=== PATIENT | female | born 1995 | race Caucasian/White ===

== ENCOUNTER 2017-04-06 15:54 | Emergency (ER) | payer OTHER, MEDICAID ==
[~2017-04-06] VITALS: Ht 167.6 cm; Wt 54.4 kg
[~2017-04-06 15:54] MED LIST: AMOXICILLIN 50500 MG PO; BACTRIM DS TAB1 EACH PO; BACTROBAN15 GM TP; BENADRYL ALLERG25 MG PO; BENZONATATE; CELEXA; CELEXA 10 MG TA10 M1; CELEXA20 MG PO; ERYTHROMYCIN E3.5 G1 OPHTHALMIC; ERYTHROMYCIN E3.5 G3 OPHTHALMIC; FLEXERIL PO; GENTAK 3 MG/M3 MG/M1 OPHTHALMIC; KEFLEX500 MG PO; MACROBID 100 M100 M1 PO; MACRODANTIN100 MG; MAGNESIUM; MIDOL CAPLET1 EAC1 PO; NOHOMEMEDICATIONS; NORCO 5-325 TA1 EACH PO; PRENATAL FORMU1 EAC4; PROPRANOLOL; TIZANIDINE HCL4 MG PO; TOBRADEX EYE DRO5 ML OP; TOBRAMYCIN SULFA5 ML OPHTHALMIC; TRAMADOL 50 MG50 MG PO; TRINATE TABLET1 TAB PO; ULTRAM50 MG PO; ZOLOFT100 MG PO; ZPAK PO; [UNRECOGNIZED DRUG - REMARK]
[2017-04-06] MEDS ORDERED: PREDNISONE 20 M20 M1 PO (16:14)
[2017-04-06 16:25] VITALS: BP 114/72
== END 2017-04-06 16:26 | disposition home or self-care (01) ==
LOC: M.ERS 15:54
DX: M26.602 Left temporomandibular joint disorder, unspecified (principal); F17.210 Nicotine dependence, cigarettes, uncomplicated; F32.9 Major depressive disorder, single episode, unspecified; F90.9 Attention-deficit hyperactivity disorder, unspecified type; F41.9 Anxiety disorder, unspecified; G43.909 Migraine, unspecified, not intractable, without status migrainosus; Z88.0 Allergy status to penicillin

== ENCOUNTER 2017-06-05 08:38 | Emergency (ER) | payer OTHER, MEDICAID ==
[~2017-06-05] VITALS: Ht 167.6 cm; Wt 54.4 kg
[~2017-06-05 08:38] MED LIST changes: +PREDNISONE 20 M20 M1 PO
[2017-06-05 08:54] LABS: URINE BLOOD 2+ (Negative); URINE CLARITY CLOUDY; URINE COLOR YELLOW; URINE GLUCOSE-RANDOM NEGATIVE (Negative); URINE KETONES TRACE (Negative); URINE NITRITE-REFLEX NEGATIVE (Negative); URINE PROTEIN TRACE (Negative); URINE SPECIFIC GRAVITY >= 1.030 (1.005-1.030)
[2017-06-05 08:59] LABS: ICTOTEST (BILI CONFIRMATORY) Negative (Negative); URINE BILIRUBIN 1+ (Negative); URINE LEUKOCYTES-REFLEX 3+ (Negative)
[2017-06-05 09:00] LABS: SQUAMOUS >10 Many /LPF (0-3)
[2017-06-05 09:01] LABS: BACTERIA-REFLEX >30 Many /HPF (None Seen); CASTS None Seen /LPF (None Seen); CRYSTALS None Seen /LPF (None Seen); URINE RBC None Seen /HPF (0-2); URINE WBC-REFLEX >25 Many /HPF (0-5)
[2017-06-05 09:02] LABS: HEMATOCRIT 42.1 % (37.0-47.0); HEMOGLOBIN 14.5 gm/dL (12.0-15.0); MCHC 34.5 g/dL (28.0-37.0); MCV 95.6 fL (80.0-100.0); NUCLEATED RBCS 0 /100WBC; PLATELET COUNT* 158 thou/uL (150-400); RBC 4.41 mil/uL (4.20-5.00); WBC 7.5 thou/uL (4.0-11.0)
[2017-06-05 09:07] LABS: CALCIUM 8.7 mg/dL (8.5-10.1); CREATININE 0.7 mg/dL (0.6-1.3); POTASSIUM 3.6 mmol/L (3.5-5.1)
[2017-06-05 09:11] LABS: ALBUMIN 4.2 g/dL (3.4-5.0); TOTAL BILIRUBIN 0.7 mg/dL (<0.1-1.0); TOTAL PROTEIN 7.8 g/dL (6.4-8.2)
[2017-06-05 09:22] LABS: ABSOLUTE LYMPHOCYTES 0.7 thou/uL (0.8-5.3); ABSOLUTE MONOCYTES 0.4 thou/uL (0.0-1.2); ABSOLUTE NEUTROPHILS 6.5 thou/uL (1.6-8.1); PLATELET ESTIMATE ADEQUATE
[2017-06-05] MEDS ORDERED: ZOFRAN ODT4 M1 PO (10:02)
[2017-06-05] MEDS ORDERED: BACTRIM DS TAB1 EACH PO (10:02)
[2017-06-05] MEDS ORDERED: NORCO 5-325 TA1 EACH PO (10:02)
[2017-06-05 10:31] VITALS: BP 110/52
== END 2017-06-05 10:31 | disposition home or self-care (01) ==
LOC: M.ERS 08:38
PROVIDERS: Emergency Medicine Emergency Medical Services
DX: N12 Tubulo-interstitial nephritis, not specified as acute or chronic (principal); G43.909 Migraine, unspecified, not intractable, without status migrainosus; F32.9 Major depressive disorder, single episode, unspecified; F90.9 Attention-deficit hyperactivity disorder, unspecified type; F41.9 Anxiety disorder, unspecified; Z86.2 Personal history of diseases of the blood and blood-forming organs and certain disorders involving the immune mechanism; Z87.440 Personal history of urinary (tract) infections

== ENCOUNTER 2017-06-18 12:10 | Emergency (ER) | payer OTHER, MEDICAID ==
[~2017-06-18] VITALS: Ht 170.2 cm; Wt 52.2 kg
[~2017-06-18 12:10] MED LIST changes: +ZOFRAN ODT4 M1 PO
[2017-06-18 12:33] LABS: URINE BILIRUBIN NEGATIVE (Negative); URINE BLOOD 1+ (Negative); URINE CLARITY CLEAR; URINE COLOR YELLOW; URINE GLUCOSE-RANDOM NEGATIVE (Negative); URINE KETONES NEGATIVE (Negative); URINE LEUKOCYTES-REFLEX NEGATIVE (Negative); URINE NITRITE-REFLEX NEGATIVE (Negative); URINE PROTEIN NEGATIVE (Negative); URINE SPECIFIC GRAVITY 1.025 (1.005-1.030); URINE UROBILINOGEN 0.2 E.U./dl (0.2-1.0)
[2017-06-18 12:39] LABS: CASTS None Seen /LPF (None Seen); CRYSTALS None Seen /LPF (None Seen); MUCUS 4-6 Moderate strn/LPF (None Seen); SQUAMOUS 4-10 Moderate /LPF (0-3); URINE RBC 3-10 Few /HPF (0-2); URINE WBC-REFLEX 0-5 Rare /HPF (0-5)
[2017-06-18 12:40] LABS: ABSOLUTE BASOPHILS 0.1 thou/uL (0.0-0.2); ABSOLUTE EOSINOPHILS 0.1 thou/uL (0.0-0.7); ABSOLUTE LYMPHOCYTES 1.9 thou/uL (0.8-5.3); ABSOLUTE MONOCYTES 0.4 thou/uL (0.0-1.2); ABSOLUTE NEUTROPHILS 6.2 thou/uL (1.6-8.1); BASOPHILS 0.6 %; EOSINOPHILS 0.8 %; HEMATOCRIT 38.9 % (37.0-47.0); HEMOGLOBIN 13.3 gm/dL (12.0-15.0); LYMPHOCYTES 22.2 %; MCH 32.9 pg (26.0-34.0); MCHC 34.1 g/dL (28.0-37.0); MCV 96.5 fL (80.0-100.0); MONOCYTES 4.4 %; MPV 8.3 fl. (7.2-11.1); NUCLEATED RBCS 0 /100WBC; PLATELET COUNT* 196 thou/uL (150-400); RBC 4.03 mil/uL (4.20-5.00); RDW-CV 11.7 % (10.5-14.5); WBC 8.6 thou/uL (4.0-11.0)
[2017-06-18 12:48] LABS: CALCIUM 9.1 mg/dL (8.5-10.1); CREATININE 0.7 mg/dL (0.6-1.3)
[2017-06-18] MEDS ORDERED: PROMETHAZINE HC25 M1 PO (13:04)
[2017-06-18] MEDS ORDERED: CIPRO250 M2 PO (13:05)
[2017-06-18] MEDS ORDERED: NORCO 5-325 TA1 EAC1 PO (13:06)
[2017-06-18 13:28] VITALS: BP 107/61
== END 2017-06-18 13:30 | disposition home or self-care (01) ==
LOC: M.ERS 12:10
PROVIDERS: Nurse Practitioner
DX: N39.0 Urinary tract infection, site not specified (principal); B96.89 Other specified bacterial agents as the cause of diseases classified elsewhere; G43.909 Migraine, unspecified, not intractable, without status migrainosus; F32.9 Major depressive disorder, single episode, unspecified; F41.9 Anxiety disorder, unspecified; F90.9 Attention-deficit hyperactivity disorder, unspecified type; F17.210 Nicotine dependence, cigarettes, uncomplicated; Z86.2 Personal history of diseases of the blood and blood-forming organs and certain disorders involving the immune mechanism; Z87.440 Personal history of urinary (tract) infections; Z88.1 Allergy status to other antibiotic agents

== ENCOUNTER 2017-08-28 22:17 | Emergency (ER) | payer OTHER, MEDICAID ==
[~2017-08-28] VITALS: Ht 167.6 cm; Wt 55.3 kg
[~2017-08-28 22:17] MED LIST changes: +CIPRO250 M2 PO; +NORCO 5-325 TA1 EAC1 PO; +PROMETHAZINE HC25 M1 PO
[2017-08-28] MEDS ORDERED: BIAXIN 500 MG500 M2 PO (23:19)
[2017-08-28 23:29] VITALS: BP 115/71
== END 2017-08-28 23:30 | disposition home or self-care (01) ==
LOC: M.ERS 22:17
DX: H66.91 Otitis media, unspecified, right ear (principal); F41.9 Anxiety disorder, unspecified; F32.9 Major depressive disorder, single episode, unspecified; G43.909 Migraine, unspecified, not intractable, without status migrainosus; F17.210 Nicotine dependence, cigarettes, uncomplicated; Z88.1 Allergy status to other antibiotic agents

== ENCOUNTER 2017-08-30 11:21 | Emergency (ER) | payer OTHER, MEDICAID ==
[~2017-08-30] VITALS: Ht 167.6 cm; Wt 55.3 kg
[~2017-08-30 11:21] MED LIST changes: +BIAXIN 500 MG500 M2 PO
[2017-08-30 11:26] VITALS: BP 103/69
[2017-08-30] MEDS ORDERED: ACCUNEB SO1.25 MG/1 INH (11:31)
[2017-08-30] MEDS ORDERED: ACETAMINOPHEN-1 EAC1 PO (11:49)
[2017-08-30] MEDS ORDERED: CEFDINIR300 MG PO (11:50)
== END 2017-08-30 12:07 | disposition home or self-care (01) ==
LOC: M.ERS 11:21
DX: H66.93 Otitis media, unspecified, bilateral (principal); G43.909 Migraine, unspecified, not intractable, without status migrainosus; F90.9 Attention-deficit hyperactivity disorder, unspecified type; F41.9 Anxiety disorder, unspecified; F31.9 Bipolar disorder, unspecified; Z86.2 Personal history of diseases of the blood and blood-forming organs and certain disorders involving the immune mechanism; Z88.0 Allergy status to penicillin

== ENCOUNTER 2017-09-07 19:34 | Emergency (ER) | payer OTHER, MEDICAID ==
[~2017-09-07] VITALS: Ht 167.6 cm; Wt 54.0 kg
[~2017-09-07 19:34] MED LIST changes: +ACCUNEB SO1.25 MG/1 INH; +ACETAMINOPHEN-1 EAC1 PO; +CEFDINIR300 MG PO
[2017-09-07] MEDS ORDERED: HYDROXYZINE PAM25 M1 PO (19:48)
[2017-09-07] MEDS ORDERED: ALLEGRA ALLERG180 MG PO (19:49)
[2017-09-07] MEDS ORDERED: WELLBUTRIN XL150 MG PO (19:49)
[2017-09-07 20:00] LABS: URINE BILIRUBIN NEGATIVE (Negative); URINE BLOOD NEGATIVE (Negative); URINE CLARITY CLEAR; URINE COLOR YELLOW; URINE GLUCOSE-RANDOM NEGATIVE (Negative); URINE KETONES NEGATIVE (Negative); URINE LEUKOCYTES-REFLEX NEGATIVE (Negative); URINE NITRITE-REFLEX NEGATIVE (Negative); URINE PROTEIN TRACE (Negative); URINE SPECIFIC GRAVITY >= 1.030 (1.005-1.030); URINE UROBILINOGEN 0.2 E.U./dl (0.2-1.0)
[2017-09-07 20:18] LABS: ABSOLUTE BASOPHILS 0.1 thou/uL (0.0-0.2); ABSOLUTE EOSINOPHILS 0.1 thou/uL (0.0-0.7); ABSOLUTE LYMPHOCYTES 2.1 thou/uL (0.8-5.3); ABSOLUTE MONOCYTES 0.5 thou/uL (0.0-1.2); ABSOLUTE NEUTROPHILS 5.6 thou/uL (1.6-8.1); BASOPHILS 0.8 %; EOSINOPHILS 1.3 %; HEMOGLOBIN 13.8 gm/dL (12.0-15.0); LYMPHOCYTES 25.1 %; MCH 32.8 pg (26.0-34.0); MCHC 34.5 g/dL (28.0-37.0); MCV 95.1 fL (80.0-100.0); MONOCYTES 5.6 %; MPV 8.5 fl. (7.2-11.1); NUCLEATED RBCS 0 /100WBC; PLATELET COUNT* 257 thou/uL (150-400); POLYS 67.2 %; RBC 4.21 mil/uL (4.20-5.00); WBC 8.4 thou/uL (4.0-11.0)
[2017-09-07 20:26] LABS: CALCIUM 9.2 mg/dL (8.5-10.1); CREATININE 0.8 mg/dL (0.6-1.3); POTASSIUM 3.9 mmol/L (3.5-5.1)
[2017-09-07] MEDS ORDERED: ZOFRAN ODT4 MG PO (20:28)
[2017-09-07 20:30] LABS: TOTAL BILIRUBIN 0.4 mg/dL (<0.1-1.0); TOTAL PROTEIN 8.4 g/dL (6.4-8.2)
[2017-09-07 20:36] LABS: AMP/METHAMP Negative (Negative); BARBITURATES Negative (Negative); BENZODIAZEPINES Negative (Negative); COCAINE Negative (Negative); METHADONE Negative (Negative); OPIATES POSITIVE (Negative); PCP Negative (Negative); THC Negative (Negative)
[2017-09-07 20:48] VITALS: BP 110/62
== END 2017-09-07 20:49 | disposition home or self-care (01) ==
LOC: M.ERS 19:34
PROVIDERS: Physician Assistant
DX: R11.2 Nausea with vomiting, unspecified (principal); F90.9 Attention-deficit hyperactivity disorder, unspecified type; F31.9 Bipolar disorder, unspecified; Z86.2 Personal history of diseases of the blood and blood-forming organs and certain disorders involving the immune mechanism; Z88.1 Allergy status to other antibiotic agents

== ENCOUNTER 2017-10-13 19:57 | Emergency (ER) | payer OTHER, MEDICAID ==
[~2017-10-13] VITALS: Ht 167.6 cm; Wt 49.9 kg
[~2017-10-13 19:57] MED LIST changes: +ALLEGRA ALLERG180 MG PO; +HYDROXYZINE PAM25 M1 PO; +WELLBUTRIN XL150 MG PO; +ZOFRAN ODT4 MG PO
[2017-10-13] MEDS ORDERED: FLONASE 0.05%50 MCG (20:18)
[2017-10-13] MEDS ORDERED: PREDNISONE 10 M10 MG (20:19)
[2017-10-13] MEDS ORDERED: SINGULAIR 10 MG10 M1 (20:19)
[2017-10-13 20:57] VITALS: BP 101/68
== END 2017-10-13 20:58 | disposition home or self-care (01) ==
LOC: M.ERS 19:57
DX: S60.031A Contusion of right middle finger without damage to nail, initial encounter (principal); G43.909 Migraine, unspecified, not intractable, without status migrainosus; F41.9 Anxiety disorder, unspecified; F31.9 Bipolar disorder, unspecified; F90.9 Attention-deficit hyperactivity disorder, unspecified type; Z88.1 Allergy status to other antibiotic agents; W23.0XXA Caught, crushed, jammed, or pinched between moving objects, initial encounter; Y93.89 Activity, other specified; Y92.89 Other specified places as the place of occurrence of the external cause; Y99.8 Other external cause status

== ENCOUNTER 2018-12-19 03:27 | Emergency (ER) | payer OTHER, MEDICAID ==
[~2018-12-19] VITALS: Ht 167.6 cm; Wt 55.3 kg
[~2018-12-19 03:27] MED LIST changes: +FLONASE 0.05%50 MCG; +PREDNISONE 10 M10 MG; +SINGULAIR 10 MG10 M1
[2018-12-19] MEDS ORDERED: FLEXERIL PO (03:50)
[2018-12-19 04:02] VITALS: BP 122/78
== END 2018-12-19 04:02 | disposition home or self-care (01) ==
LOC: M.ERS 03:27
DX: M62.838 Other muscle spasm (principal); M54.2 Cervicalgia; M25.511 Pain in right shoulder; F41.9 Anxiety disorder, unspecified; F31.9 Bipolar disorder, unspecified; F90.9 Attention-deficit hyperactivity disorder, unspecified type; G43.909 Migraine, unspecified, not intractable, without status migrainosus; Z87.440 Personal history of urinary (tract) infections; Z86.2 Personal history of diseases of the blood and blood-forming organs and certain disorders involving the immune mechanism; Z88.1 Allergy status to other antibiotic agents; V49.49XA Driver injured in collision with other motor vehicles in traffic accident, initial encounter; Y93.89 Activity, other specified; Y92.89 Other specified places as the place of occurrence of the external cause; Y99.8 Other external cause status

== ENCOUNTER 2019-05-01 20:18 | Emergency (ER) | payer OTHER, MEDICAID ==
[~2019-05-01] VITALS: Ht 167.6 cm; Wt 55.3 kg
[2019-05-01] MEDS ORDERED: RIZATRIPTAN PO (20:33)
[2019-05-01 22:20] VITALS: BP 112/75
== END 2019-05-01 22:20 | disposition home or self-care (01) ==
LOC: M.ERS 20:18
DX: G43.909 Migraine, unspecified, not intractable, without status migrainosus (principal); Z87.440 Personal history of urinary (tract) infections; Z86.2 Personal history of diseases of the blood and blood-forming organs and certain disorders involving the immune mechanism; Z88.1 Allergy status to other antibiotic agents; Z88.8 Allergy status to other drugs, medicaments and biological substances

== ENCOUNTER 2019-06-14 08:51 | Emergency (ER) | payer BC, OTHER, MEDICAID ==
[~2019-06-14] VITALS: Ht 167.6 cm; Wt 55.8 kg
[~2019-06-14 08:51] MED LIST changes: +RIZATRIPTAN PO
[2019-06-14] MEDS ORDERED: BOTOX100 UNIT IM (09:05)
[2019-06-14 09:22] LABS: URINE BILIRUBIN NEGATIVE (Negative); URINE BLOOD 3+ (Negative); URINE CLARITY SL CLOUDY; URINE COLOR RED; URINE GLUCOSE-RANDOM NEGATIVE (Negative); URINE KETONES NEGATIVE (Negative); URINE LEUKOCYTES-REFLEX TRACE (Negative); URINE NITRITE-REFLEX NEGATIVE (Negative); URINE PROTEIN 1+ (Negative); URINE SPECIFIC GRAVITY >= 1.030 (1.005-1.030)
[2019-06-14 09:23] LABS: SQUAMOUS 0-3 Few /LPF (0-3); URINE RBC >20 Many /HPF (0-2); URINE WBC-REFLEX 0-5 Rare /HPF (0-5)
[2019-06-14 09:24] LABS: CASTS None Seen /LPF (None Seen); CRYSTALS None Seen /LPF (None Seen); MUCUS 0-3 Light strn/LPF (None Seen)
[2019-06-14] MEDS ORDERED: BACTRIM DS TAB1 EACH PO (09:27)
[2019-06-14] MEDS ORDERED: PYRIDIUM200 M2 PO (09:27)
[2019-06-14] MEDS ORDERED: TYLENOL WITH CO1 TA1 PO (09:30)
[2019-06-14 09:38] VITALS: BP 110/60
== END 2019-06-14 09:38 | disposition home or self-care (01) ==
LOC: M.ERS 08:51
PROVIDERS: Emergency Medicine
DX: N39.0 Urinary tract infection, site not specified (principal); G43.909 Migraine, unspecified, not intractable, without status migrainosus; F17.210 Nicotine dependence, cigarettes, uncomplicated; Z88.1 Allergy status to other antibiotic agents; Z88.8 Allergy status to other drugs, medicaments and biological substances; Z86.2 Personal history of diseases of the blood and blood-forming organs and certain disorders involving the immune mechanism

== ENCOUNTER 2019-10-03 10:59 | Emergency (ER) | payer BC, OTHER, MEDICAID ==
[~2019-10-03] VITALS: Ht 167.6 cm; Wt 59.0 kg
[~2019-10-03 10:59] MED LIST changes: +BOTOX100 UNIT IM; +PYRIDIUM200 M2 PO; +TYLENOL WITH CO1 TA1 PO
[2019-10-03] MEDS ORDERED: NORCO 5-325 TA1 EAC2 PO (11:51)
[2019-10-03 12:09] VITALS: BP 115/75
== END 2019-10-03 12:09 | disposition home or self-care (01) ==
LOC: M.ERS 10:59
DX: S93.491A Sprain of other ligament of right ankle, initial encounter (principal); G43.909 Migraine, unspecified, not intractable, without status migrainosus; Z88.1 Allergy status to other antibiotic agents; Z88.0 Allergy status to penicillin; Z88.8 Allergy status to other drugs, medicaments and biological substances; Z87.440 Personal history of urinary (tract) infections; Z86.2 Personal history of diseases of the blood and blood-forming organs and certain disorders involving the immune mechanism; X58.XXXA Exposure to other specified factors, initial encounter; Y93.89 Activity, other specified; Y92.89 Other specified places as the place of occurrence of the external cause; Y99.8 Other external cause status

== ENCOUNTER 2019-10-22 05:37 | Emergency (ER) | payer BC, OTHER, MEDICAID ==
[~2019-10-22] VITALS: Ht 167.6 cm; Wt 60.3 kg
[~2019-10-22 05:37] MED LIST changes: +NORCO 5-325 TA1 EAC2 PO
[2019-10-22] MEDS ORDERED: GENTAK5 ML EA. EYE (06:30)
[2019-10-22 06:36] VITALS: BP 110/71
== END 2019-10-22 06:36 | disposition home or self-care (01) ==
LOC: M.ERS 05:37
DX: H57.11 Ocular pain, right eye (principal); G43.909 Migraine, unspecified, not intractable, without status migrainosus; F41.9 Anxiety disorder, unspecified; F31.9 Bipolar disorder, unspecified; Z87.440 Personal history of urinary (tract) infections; Z86.2 Personal history of diseases of the blood and blood-forming organs and certain disorders involving the immune mechanism; Z88.0 Allergy status to penicillin; Z88.1 Allergy status to other antibiotic agents; Z88.8 Allergy status to other drugs, medicaments and biological substances

== ENCOUNTER 2019-11-01 15:45 | Emergency (ER) | payer BC, OTHER, MEDICAID ==
[~2019-11-01] VITALS: Ht 167.6 cm; Wt 59.0 kg
[~2019-11-01 15:45] MED LIST changes: +GENTAK5 ML EA. EYE
[2019-11-01 16:03] LABS: URINE BILIRUBIN NEGATIVE (Negative); URINE BLOOD 1+ (Negative); URINE CLARITY CLEAR; URINE COLOR YELLOW; URINE GLUCOSE-RANDOM NEGATIVE (Negative); URINE KETONES TRACE (Negative); URINE LEUKOCYTES-REFLEX NEGATIVE (Negative); URINE NITRITE-REFLEX NEGATIVE (Negative); URINE PROTEIN TRACE (Negative); URINE SPECIFIC GRAVITY >= 1.030 (1.005-1.030)
[2019-11-01 16:11] LABS: MUCUS >6 Heavy strn/LPF (None Seen); SQUAMOUS >10 Many /LPF (0-3); URINE WBC-REFLEX 0-5 Rare /HPF (0-5)
[2019-11-01 16:12] LABS: CASTS None Seen /LPF (None Seen); CRYSTALS None Seen /LPF (None Seen); URINE RBC 0-2 Rare /HPF (0-2)
[2019-11-01] MEDS ORDERED: PHENAZOPYRIDIN200 M2 PO (16:27)
[2019-11-01] MEDS ORDERED: BACTRIM DS TAB1 EACH PO (16:27)
[2019-11-01 16:36] VITALS: BP 111/66
== END 2019-11-01 16:37 | disposition home or self-care (01) ==
LOC: M.ERS 15:45
PROVIDERS: Nurse Practitioner Family
DX: N39.0 Urinary tract infection, site not specified (principal); K58.9 Irritable bowel syndrome, unspecified; G43.909 Migraine, unspecified, not intractable, without status migrainosus; F41.9 Anxiety disorder, unspecified; F31.9 Bipolar disorder, unspecified; Z87.440 Personal history of urinary (tract) infections; Z86.2 Personal history of diseases of the blood and blood-forming organs and certain disorders involving the immune mechanism; Z88.0 Allergy status to penicillin; Z88.1 Allergy status to other antibiotic agents; Z88.8 Allergy status to other drugs, medicaments and biological substances

== ENCOUNTER 2019-12-16 14:18 | Emergency (ER) | payer BC, OTHER, MEDICAID ==
[~2019-12-16] VITALS: Ht 167.6 cm; Wt 59.9 kg
[~2019-12-16 14:18] MED LIST changes: +PHENAZOPYRIDIN200 M2 PO
[2019-12-16 14:57] VITALS: BP 120/88
== END 2019-12-16 14:57 | disposition home or self-care (01) ==
LOC: M.ERS 14:18
DX: H69.83 Other specified disorders of Eustachian tube, bilateral (principal); G43.909 Migraine, unspecified, not intractable, without status migrainosus; K58.9 Irritable bowel syndrome, unspecified; Z88.1 Allergy status to other antibiotic agents; Z88.0 Allergy status to penicillin; Z88.8 Allergy status to other drugs, medicaments and biological substances; Z87.440 Personal history of urinary (tract) infections; Z86.2 Personal history of diseases of the blood and blood-forming organs and certain disorders involving the immune mechanism